=== PATIENT | male | born 1950 | race African-American/Black ===

== ENCOUNTER 2016-10-08 14:11 | Emergency (ER) | payer OTHER ==
[~2016-10-08] VITALS: Ht 175.3 cm; Wt 75.0 kg
[~2016-10-08 14:11] MED LIST: ASPI-1158 PO; COR6 PO; DIGO0.25 PO; FURO-152 PO; HYDR-523 PO; LISI-186 PO; NORT25CA PO; POTA10CA42 PO; SOTA120T PO
[2016-10-08] MEDS ORDERED: SODIUM CHLORIDE 0.9% 1,000 ML IV ONE (14:59)
[2016-10-08 15:20] LABS: BASOPHILS % 0.3 % (0.0-2.0); EOSINOPHILS % 0.1 % (0.0-5.0); HEMATOCRIT. 40.9 % (42.0-52.0); HEMOGLOBIN. 13.9 g/dL (14.0-18.0); LYMPHOCYTES % 8.6 % (20.0-50.0); MEAN CORPUSCULAR HEMOGLOBIN 31.8 pg (28.0-32.0); MEAN CORPUSCULAR VOLUME 93.9 fL (80.0-94.0); MEAN PLATELET VOLUME 8.7 fl (7.4-10.4); PLATELET 152 x1000/uL (130-400); RED BLOOD CELL COUNT 4.36 mill/uL (4.7-6.1); RED CELL DISTRIBUTION WIDTH 15.8 % (11.6-14.6)
[2016-10-08 15:27] LABS: CARBON DIOXIDE 20 mEq/L (21-32); CHLORIDE 95 mEq/L (98-107); PARTIAL THROMBOPLASTIN TIME 23.2 sec (24.0-34.0)
[2016-10-08] MEDS ORDERED: ONDANSETRON HCL 4MG/2ML VIAL IM ONE (15:30)
[2016-10-08] MEDS ORDERED: FOLIC ACID 1 MG, THIAMINE HCL 100 MG, MVI, ADULT NO.1 10 ML in DEXTROSE 5% WATER 1,000 ML IV ONE ×4 (15:30)
[2016-10-08 15:35] LABS: TROPONIN I < 0.02 ng/mL (0.00-0.04)
[2016-10-08] MEDS ORDERED: MORPHINE SULFATE 4 MG/ML CPJ (NOT FOR IM USE) IV ONE (18:45)
[2016-10-08 20:06] VITALS: BP 138/70
[2016-10-14] MEDS ORDERED: MAGN400C PO (04:11)
[2016-10-14] MEDS ORDERED: ALBU6.7H INH (04:11)
[2016-10-14] MEDS ORDERED: MULT-1146 PO (04:11)
[2016-10-14] MEDS ORDERED: WARF2TAB55 PO (04:11)
== END 2016-10-08 20:43 | disposition short-term general hospital (02) ==
LOC: ER 14:21
DX: R74.8 Abnormal levels of other serum enzymes (principal); K70.10 Alcoholic hepatitis without ascites; R64 Cachexia; E11.9 Type 2 diabetes mellitus without complications; I11.0 Hypertensive heart disease with heart failure; I50.9 Heart failure, unspecified; J44.9 Chronic obstructive pulmonary disease, unspecified; Z95.0 Presence of cardiac pacemaker; F10.20 Alcohol dependence, uncomplicated; Z79.82 Long term (current) use of aspirin
CPT/HCPCS: 36415; 51702; 71010; 80053; 83690; 84484; 85025; 85610; 85730; 93005; 96361; 96365; 96366; 96372; 96375; 99285; J2270; J2405; J3411; J3490; J7030; J7070; A4315